=== PATIENT | female | born 1960 | race Two or more races ===

== ENCOUNTER 2024-02-13 09:32 | Emergency (ER) | payer OTHER ==
[~2024-02-13] VITALS: Ht 157.5 cm; Wt 54.0 kg
[2024-02-13 09:46] VITALS: TEMP 98.1
[2024-02-13] MEDS ORDERED: ATOR20TA PO (09:53)
[2024-02-13] MEDS ORDERED: CELE100 PO (09:53)
[2024-02-13] MEDS: KETOROLAC TROMETHAMINE 60 MG/2 ML VIAL IM ONE (10:10)
[2024-02-13] MEDS: METHOCARBAMOL 500 MG TABLET PO ONE (10:10)
[2024-02-13] MEDS: LIDOCAINE 5% TRANSDERMAL PATCH TD ONE (10:10)
[2024-02-13] MEDS ORDERED: ATOR40TA71 PO (11:58)
[2024-02-13] MEDS ORDERED: IBUP-1492 PO (11:59)
[2024-02-13 12:49] VITALS: BP 156/93; PULSE 83; RESP 17; O2SAT 97
== END 2024-02-13 13:28 | disposition home or self-care (01) ==
LOC: EMS 09:32
DX: S29.012A Strain of muscle and tendon of back wall of thorax, initial encounter (principal); E78.00 Pure hypercholesterolemia, unspecified; M19.90 Unspecified osteoarthritis, unspecified site; V49.88XA Car occupant (driver) (passenger) injured in other specified transport accidents, initial encounter; Y93.89 Activity, other specified; Y92.89 Other specified places as the place of occurrence of the external cause; Y99.8 Other external cause status
CPT/HCPCS: 99283; 71045; 96372; J1885